=== PATIENT | female | born 1980 | race Caucasian/White ===

== ENCOUNTER 2017-01-14 15:30 | Inpatient (IN) | payer BC ==
[2017-01-14] VITALS (15 sets, daily range): BP systolic 104–150; BP diastolic 55–88; PULSE 72–141; TEMP 97.5–98.6
[~2017-01-14] VITALS: Ht 165.1 cm; Wt 80.0 kg
[~2017-01-14 15:30] MED LIST: IBREN600 MG PO; IRON325 M1; PERCOCET 325 MG1 TA2 PO; PRENATAL1 TA1; SENOKOT S 50 MG1 TAB PO
[2017-01-14 17:17] LABS: BASO % 0.3 % (0.0-2.0); EOS # 0.1 (0.0-0.7); EOS % 0.7 % (0-4.0); GRAN # 8.4 (1.4-6.5); GRAN % 76.2 % (42.2-75.2); LYMPH # 1.8 (1.2-3.4); LYMPH % 15.9 % (20.0-51.0); MEAN CELL VOLUME 85 fl (80.0-100.0); MEAN CORPUSCULAR HGB CONC 34 g/dl (33.0-37.0); MEAN PLATELET VOLUME 11.3 fl (7.4-10.4); MONO # 0.7 (0.1-0.6); MONO % 6.1 % (1.7-9.3); PLATELET COUNT 224 K/mm3 (130-400); RED BLOOD COUNT 4.06 M/mm3 (4.10-5.30); REDCELL DISTRIBUTION WIDTH-CV 13.2 % (11.5-14.5); WHITE BLOOD COUNT 11.1 K/mm3 (4.8-10.8)
[2017-01-14 17:37] LABS: HEMATOCRIT 34.5 % (37.0-47.0); HEMOGLOBIN 11.6 g/dl (12.5-16.0); MEAN CORPUSCULAR HEMOGLOBIN 29 pg (27.0-31.0)
[2017-01-15 03:50] VITALS: BP 126/62; PULSE 79; TEMP 98.1
[2017-01-15 07:04] LABS: BASO % 0.3 % (0.0-2.0); EOS % 0.3 % (0-4.0); GRAN % 77.7 % (42.2-75.2); LYMPH # 2.3 (1.2-3.4); LYMPH % 15.2 % (20.0-51.0); MEAN CELL VOLUME 87 fl (80.0-100.0); MEAN CORPUSCULAR HGB CONC 33 g/dl (33.0-37.0); MEAN PLATELET VOLUME 10.6 fl (7.4-10.4); MONO # 0.9 (0.1-0.6); MONO % 5.9 % (1.7-9.3); PLATELET COUNT 219 K/mm3 (130-400); RED BLOOD COUNT 3.57 M/mm3 (4.10-5.30); REDCELL DISTRIBUTION WIDTH-CV 13.3 % (11.5-14.5); WHITE BLOOD COUNT 15.4 K/mm3 (4.8-10.8)
[2017-01-15 07:08] LABS: HEMATOCRIT 31.2 % (37.0-47.0); HEMOGLOBIN 10.3 g/dl (12.5-16.0); MEAN CORPUSCULAR HEMOGLOBIN 29 pg (27.0-31.0)
[2017-01-15 08:15] VITALS: BP 122/80; PULSE 82; TEMP 98.3
[2017-01-15 17:00] VITALS: BP 118/72; PULSE 8; TEMP 98.1
[2017-01-15 19:40] VITALS: BP 112/72; PULSE 83; TEMP 98
[2017-01-16 08:25] VITALS: BP 108/62; PULSE 68; TEMP 97.7
[2017-01-16] MEDS ORDERED: IBU600 MG PO (09:40)
[2017-01-16] MEDS ORDERED: PERCOCET 325 MG1 TA2 PO (09:40)
== END 2017-01-16 13:15 | disposition home or self-care (01) | DRG 775 ==
LOC: LDRO 15:30 → LDR 15:31 → LDRO 16:47 → OB 22:24 → LDRO 01-17 14:53
PROVIDERS: Obstetrics & Gynecology
PROC: 10E0XZZ Delivery of Products of Conception, External Approach (ICD-10-PCS; principal; 2017-01-14)
PROC: 0KQM0ZZ Repair Perineum Muscle, Open Approach (ICD-10-PCS; 2017-01-14)
DX: O42.02 Full-term premature rupture of membranes, onset of labor within 24 hours of rupture (principal); O69.81X0 Labor and delivery complicated by cord around neck, without compression, not applicable or unspecified; O70.1 Second degree perineal laceration during delivery; O09.523 Supervision of elderly multigravida, third trimester; Z3A.39 39 weeks gestation of pregnancy; Z37.0 Single live birth
CPT/HCPCS: J2400; J2590; J7120

== ENCOUNTER 2021-01-10 09:02 | Inpatient (IN) | payer OTHER ==
[~2021-01-10] VITALS: Ht 162.6 cm; Wt 84.5 kg
[2021-01-10] VITALS (25 sets, daily range): BP systolic 103–159; BP diastolic 51–118; PULSE 72–103; TEMP 97.7–98.3
[~2021-01-10 09:02] MED LIST changes: +IBU600 MG PO
--- NOTE | 2021-01-10 09:15 | NUR ---
0915- 40.1, G4L2 arrives on unit with c/o SROM at 0730. Ambulatory to LDR5. Changes into clean gown. EFM placed by Tonio Nettles RN. 922- Report received from Tonio Nettles RN. 09- FHR decel to 70's x2 min. RN to bedside, patient noted to be supine, repostioned left lateral. IV to left hand by Renay Mary RN. SVE by this RN /, amnitest positive, clear fluid noted to glove. 0928- FHR to 150's. 09- Dr. Lora updated on patient. See physician notification. Plan of care reviewed with patient who verbalizes understanding. Questions invited and answered. Patient reports normal movement, and mild irr contractions. Denies VB. 33- FHR 180's. LR bolus initiated. Consent forms explained and signed. Assessment completed. 949- Phone call received from Dr. Lora. Orders received. See physician notification. O2 applied at 10L via mask. Patient wedge right. LR bolus continues. Patient and spouse updated on POC. 1035- Dr. Lora updated on patient and FHR strips. See physician notification. 1040- Patient and spouse updated on POC. Pitocin explained and started at 2mu per orders. Warm blanket provided. Patient denies any questions or needs at this time. Resting with call light within reach.
[2021-01-10 09:48] LABS: BASO % 0.3 % (0.0-2.0); EOS # 0.1 (0.0-0.7); EOS % 0.5 % (0-4.0); GRAN # 8.9 (1.4-6.5); GRAN % 80.2 % (42.2-75.2); HEMOGLOBIN 11.8 g/dl (12.5-16.0); LYMPH # 1.3 (1.2-3.4); LYMPH % 12.1 % (20.0-51.0); MEAN CELL VOLUME 87 fl (80.0-100.0); MEAN CORPUSCULAR HEMOGLOBIN 29 pg (27.0-31.0); MEAN CORPUSCULAR HGB CONC 34 g/dl (33.0-37.0); MEAN PLATELET VOLUME 10.7 fl (7.4-10.4); MONO # 0.7 (0.1-0.6); MONO % 6.2 % (1.7-9.3); PLATELET COUNT 250 K/mm3 (130-400); RED BLOOD COUNT 4.01 M/mm3 (4.10-5.30); REDCELL DISTRIBUTION WIDTH-CV 13.2 % (11.5-14.5)
[2021-01-10] MEDS ORDERED: PRENATAL TABLET PO (10:00)
--- NOTE | 2021-01-10 11:37 | NUR ---
FHR decel to 110's from baseline of 140's lasting 70 seconds, spontaneous return to baseline. Coupling ctx at this time.
--- NOTE | 2021-01-10 12:38 | NUR ---
1238- Patient on birthing ball and noted to be breathing through contractions. Requesting epidural. Lizzie Valles CRNA at nurses desk and notified. 1240- Patient assisted to edge of bed for epidural placement. Lizzie Valles JUDGE'S CLERK to bedside. 1246- Epidural placed and single shot at this time by Lizzie Valles CRNA. See anesthesia record. Patient reports increased rectal pressure. Recurrent deep variables noted. 1255- SVE C/+2. Dr. Lora notified. See physician notification. 1257- FHR 70's. Pitocin off, LR bolus, O2 on 10L via simple mask. Patient right and right lateral. Patient to knee chest position. Dr. Lora updated. See physician notification. 1303- Dr. Lora notified FHR 130's. Dr. Lora at bedside. Patient repositioned in bed and instructed on pushing with contractions. 1307- Patient begins to push with contractions with Dr. Lora and nursing staff to bedside. Strong maternal effort. Slow progress. 1313- Pitocin 4mu per Dr. Lora's orders. Patient continues to push with contractions. Slow progress. 1320- Variable decels continue. FHR 70's. Dr. Lora consents patient for VAVD. Patient agrees. 1321- Vacuum to occiput by Dr. Lora. Traction applied to vertex by Dr. Lora as patient continues to push with contractions. Strong maternal effort noted. Moves vetex well. Pop off x1. 1321.5- Vacuum remains off, with vaginal delivery of viable female infant. To mother's chest where dried and stimulated by nursery RN. Pitocin paused. 1323- Cord clamped x2 and cut by father of . Care of assumed by Roberto Hudson RN. 1324- Spontaneous and intact delivery of placenta. Pitocin resumed at 333ml/hr per protocol. Second degree perineal laceration repaired by Dr. Lora. Fundus firm, midline, and bleeding minimal. Alice care provided, pads changed, and ice pack to perineum. Plan of care and safety precautions reviewed. See doctor dictation, anesthesia record, and nurses notes. 1330- Fundus firm and midline. Three quarter size clots expressed. Dr. Lora at bedside and notified. Patient denies questions or needs at this time. Call light within reach.
[2021-01-11 01:00] VITALS: BP 110/67; PULSE 83; TEMP 98.2
[2021-01-11 06:31] VITALS: BP 121/61; PULSE 78; TEMP 98.1
[2021-01-11] MEDS ORDERED: MOTRIN 800800 MG/TAB PO (08:01)
[2021-01-11 10:26] VITALS: BP 116/59; PULSE 81; TEMP 97.7
== END 2021-01-11 15:11 | disposition home or self-care (01) | DRG 807 ==
LOC: LDRO 09:02 → LDR 09:10 → OB 15:30
PROVIDERS: Obstetrics & Gynecology; ADMIT Obstetrics & Gynecology
PROC: 10D07Z6 Extraction of Products of Conception, Vacuum, Via Natural or Artificial Opening (ICD-10-PCS; principal; 2021-01-10)
PROC: 0KQM0ZZ Repair Perineum Muscle, Open Approach (ICD-10-PCS; 2021-01-10)
DX: O48.0 Post-term pregnancy (principal); Z37.0 Single live birth; O76 Abnormality in fetal heart rate and rhythm complicating labor and delivery; O70.1 Second degree perineal laceration during delivery; Z3A.40 40 weeks gestation of pregnancy
CPT/HCPCS: J2590; J2795; J7120

== ENCOUNTER → 2022-03-31 | Outpatient (CLI) | payer OTHER ==
[~2022-03-31] MED LIST changes: +MOTRIN 800800 MG/TAB PO; +PRENATAL TABLET PO
== END ==
LOC: MC.RAD 10:45
DX: Z12.31 Encounter for screening mammogram for malignant neoplasm of breast (principal)